=== PATIENT | male | born 1975 | race Caucasian/White ===

== ENCOUNTER 2019-03-27 14:04 | Day surgery (SDC) | payer OTHER ==
[~2019-03-27] VITALS: Ht 188 cm; Wt 104.1 kg
[~2019-03-27 14:04] MED LIST: SODIUM CHLORIDE 0.9% 1,000 ML IV ONE; SODIUM CHLORIDE 0.9% 1,000 ML ONE
[2019-03-27] MEDS ORDERED: LIDOCAINE/PF 2% 5 ML VIAL IM ONE (14:05)
[2019-03-27] MEDS ORDERED: PROPOFOL 1% 20 ML VIAL IVP ONE (14:05)
[2019-03-27] MEDS ORDERED: SODIUM CHLORIDE 0.9% 1,000 ML ONE (14:05)
[2019-03-27] MEDS ORDERED: FentaNYL CITRATE-PF 100 MCG/2 ML VIAL ONE (14:30)
[2019-03-27] MEDS ORDERED: MIDAZOLAM HCL 5 MG/ML VIAL ONE (14:31)
== END 2019-03-27 16:20 | disposition home or self-care (01) ==
LOC: SURGERY 14:04
PROVIDERS: ATTEND Student in an Organized Health Care Education/Training Program
DX: K62.5 Hemorrhage of anus and rectum (principal); K63.3 Ulcer of intestine; K57.30 Diverticulosis of large intestine without perforation or abscess without bleeding; K64.8 Other hemorrhoids; K62.1 Rectal polyp; F15.90 Other stimulant use, unspecified, uncomplicated
CPT/HCPCS: 45380; 88305; C1769; J2704; J3490; J7030; J2250; J3010